=== PATIENT | male | born 1965 | race Caucasian/White ===

== ENCOUNTER 2024-07-23 19:15 | Emergency (ER) | payer SELFPAY ==
[~2024-07-23] VITALS: Ht 182.9 cm; Wt 86.2 kg
[2024-07-23 19:15] VITALS: BP 146/82; PULSE 63; RESP 18; TEMP 98.3; O2SAT 100
[2024-07-23] MEDS ORDERED: DEPAKOTE ER PO ONE (19:38)
[2024-07-23] MEDS: DEPAKOTE PO STA (19:42)
[2024-07-23 20:15] VITALS: BP_SYST 131; BP_SYST 133; BP_DIAS 70; BP_DIAS 72; PULSE 61; PULSE 63; RESP 18; TEMP 98.3; O2SAT 100
[2024-07-23 20:29] VITALS: BP_SYST 131; BP_SYST 133; BP_DIAS 70; BP_DIAS 72; PULSE 61; PULSE 64; RESP 18; TEMP 98.3; O2SAT 100
== END 2024-07-23 20:31 | disposition home or self-care (01) ==
LOC: ER 19:15
DX: G40.909 Epilepsy, unspecified, not intractable, without status epilepticus (principal); F12.90 Cannabis use, unspecified, uncomplicated; Z88.5 Allergy status to narcotic agent; Z79.899 Other long term (current) drug therapy
CPT/HCPCS: 99283